=== PATIENT | female | born 1960 | race Caucasian/White ===

== ENCOUNTER 2021-04-26 17:09 | Emergency (ER) | payer OTHER, SELFPAY ==
[2021-04-26 16:53] VITALS: BP 108/75; PULSE 82; RESP 16; TEMP 36.3; O2SAT 100
--- NOTE | 2021-04-26 17:34 | ED.AMS ---
HPI - Altered Mental Status General Chief Complaint: Altered Mental Status Stated Complaint: new onset aggression Time Seen by Provider: 04/26/21 17:21 Source: patient Mode of arrival: EMS Limitations: altered mental status History of Present Illness HPI narrative: Patient is a 60-year-old female sent here from the group home due to aggression , not wanting to take her medications and trying to leave the facility. Unable to get any history from the patient, very poor historian, her answers to all the questions was yes . Patient tried to get up and leave the emergency room, sitter now in place. Per group home staff patient was recently discharged today from [facility]. Review of Systems Review of Systems: ROS unobtainable: Yes unobtainable due to mental status PMFSH Comments Past medical history: Unknown Family history: Unknown Social history: Unknown Exam Const: General: well developed, alert and awake Limitations: altered mental status and behavioral limitations HENMT: Head: normal to inspection, normocephalic and atraumatic Ears: hearing grossly normal bilaterally, TM normal on the right and TM normal on the left General nose exam: Normal external nose present, Normal nares present and No nasal discharge present Face and sinus: normal facial exam Mouth: Yes Normal oral and palatal mucosa present, Yes lip normal, Yes tongue normal and Yes oropharynx normal Throat: posterior oropharynx normal, tonsils normal and uvula midline Eyes: General: appearance normal, both eyes and all related structures Pupils: Equal, round and reactive pupils present EOM: EOMs intact bilaterally Neck: Neck: normal visual inspection, full ROM, no lymphadenopathy and no meningeal signs Chest: Chest palpation & inspection: normal inspection of the chest Resp: Effort & Inspection: normal respiratory effort, able to speak in complete sentences, no respiratory distress and not tachypneic Auscultation: clear to auscultation bilaterally, no crackles, no rales, no rhonchi and no wheezes Cardio: Rate: regular rate Rhythm: regular rhythm GI: Inspection: normal to inspection GI Palp: No abdominal tenderness, Yes Soft to palpation, No Tenderness to palpation present (GI), No Guarding due to palpation present (GI), No Rigid due to palpation and No Rebound tenderness present Auscultation: normal bowel sounds : General: Yes no CVA tenderness Back/Spine/Pelvis: Back: no CVA tenderness Skin: General skin exam: normal color, no rashes or lesions noted, elasticity normal and turgor normal Neuro: General: tone normal, moves all extremities, Normal light touch and pain sensation, no meningeal signs and no focal motor deficits Cranial nerves: Yes Equal, round and reactive pupils present Speech: No Abnormal speech present Sensory Exam: No Sensory deficit (Neuro) Extrem: General: normal to inspection, full ROM and capillary refill normal Psych: Appearance: grossly normal and well kempt Affect: No normal affect (Flat affect) Course Vital Signs Vital signs: Vital Signs Temperature 36.3 C L 04/26/21 16:53 Pulse Rate 82 04/26/21 16:53 Respiratory Rate 16 04/26/21 16:53 Blood Pressure 108/75 04/26/21 16:53 Pulse Oximetry 100 04/26/21 16:53 Temperature 36.9 C 04/26/21 18:00 Pulse Rate 79 04/26/21 18:00 Respiratory Rate 16 04/26/21 18:00 Blood Pressure 118/89 04/26/21 18:00 Pulse Oximetry 100 04/26/21 18:00 MDM - Altered Mental Status Lab Data Result diagrams: 04/26/21 18:11 04/26/21 18:11 Labs: Lab Results 04/26/21 04/26/21 04/26/21 Range/Units 18:11 18:11 18:21 WBC 7.8 (4.5-10.0) K/mm3 RBC 4.04 L (4.2-5.4) M/mm3 Hgb 12.3 (12.0-15.0) g/dL Hct 38.5 (37.0-47.0) % MCV 95.3 (80-100) fl MCH 30.4 (26-34) pg MCHC 31.9 L (32-36) g/dl RDW 14.7 H (11.5-14.5) % Plt Count 249 (150-375) k/mm3 MPV 9.6 (7.4-10.4) fl Immature Gran % (Aut
[2021-04-26 18:00] VITALS: BP 118/89; PULSE 79; RESP 16; TEMP 36.9; O2SAT 100
[2021-04-26] MEDS: SODIUM CHLORIDE 0.9% IV 1,000 ML 999 ML IV CONT (18:13)
[2021-04-26 18:43] LABS: Basophils Percent Auto 0.4 % (0.2-1.2); Eosinophils Percent Auto 0.5 % (0-4.4); Hematocrit 38.5 % (37.0-47.0); Hemoglobin 12.3 g/dL (12.0-15.0); Immature Granulocyte Absolute 0.03 K/mm3 (0.00-0.031); Immature Granulocyte Percent A 0.4 % (0-0.5); Lymphocytes Absolute Auto 1.55 K/mm3 (0.9-3.2); Lymphocytes Percent Auto 19.9 % (18.3-44.2); Mean Corpuscular HGB Conc 31.9 g/dl (32-36); Mean Corpuscular Hemoglobin 30.4 pg (26-34); Mean Corpuscular Volume 95.3 fl (80-100); Mean Platelet Volume 9.6 fl (7.4-10.4); Monocytes Absolute Auto 0.3 K/mm3 (0.1-0.6); Monocytes Percent Auto 4.1 % (2.6-8.5); Neutrophils Absolute Auto 5.8 K/mm3 (1.3-6.7); Neutrophils Percent Auto 74.7 % (45.5-73.1); Platelet Count Result 249 k/mm3 (150-375); Red Blood Count 4.04 M/mm3 (4.2-5.4); Red Cell Distribution Width 14.7 % (11.5-14.5); White Blood Count 7.8 K/mm3 (4.5-10.0)
[2021-04-26 18:52] LABS: Add Urine Microscopic? YES; Appearance Urine Clear (Clear); Bilirubin Urine Negative (Negative); Blood Urine Negative (Negative); Color Urine Yellow (Yellow); Glucose Urine UA Negative (Negative); Ketones Urine Negative (Negative); Leukocyte Esterase Ur Negative LEU/UL (Negative); Mucus Urine Rare /lpf; Nitrate Urine Negative (Negative); Protein Urine Negative (Negative); Specific Grav Ur 1.024 (1.001-1.035); WBC Urine 0-3 /hpf
[2021-04-26 18:55] LABS: Anion Gap 7 mmol/L (8-16); Blood Urea Nitrogen 27 mg/dL (7-17); Calcium 9.6 mg/dL (8.4-10.2); Carbon Dioxide 28 mmol/L (22-30); Chloride 106 mmol/L (98-107); Estimated CRCL calculation 51 ml/min; Estimated Glomerular Filt Rate 57; Glucose 95 mg/dL (65-110); Potassium 4.2 mmol/L (3.4-5.0); Sodium 141 mmol/L (137-145)
[2021-04-26 20:00] VITALS: BP 116/80; PULSE 77; RESP 18; O2SAT 100
--- NOTE | 2021-04-26 20:07 | PC.NURSE ---
Pt's botherClay, called in for update. [facility] pt was admitted to [facility] yesterday. has a long history of mental illness, approx 30+ years. [facility] she has been tested for covid weekly and has been negative to date. [facility] she has poor verbal communication, poor memory, wanders and can become combative at times.
--- NOTE | 2021-04-26 20:45 | PC.NURSE ---
called [facility] to request transport. ETA [id number]
[2021-04-26 22:00] VITALS: BP 116/80; PULSE 78; RESP 18; O2SAT 100
--- NOTE | 2021-04-26 22:01 | PC.NURSE ---
called [facility] for ETA update. eta [id number]
[2021-04-26 23:00] VITALS: BP 116/82; PULSE 78; RESP 16; TEMP 36.8; O2SAT 100
--- NOTE | 2021-04-26 23:14 | PC.NURSE ---
[facility] here.
--- NOTE | 2021-04-26 23:41 | PC.NURSE ---
Brother, Clay, notified of discharge back to [facility].
== END 2021-04-26 23:00 ==
PROVIDERS: Emergency Provider Emergency Medicine
DX: R46.89 Other symptoms and signs involving appearance and behavior (principal)
CPT/HCPCS: 36415; 51701; 80048; 81001; 85025; 96360; 96361; 99283; J7030